=== PATIENT | female | born 1950 | race Caucasian/White ===

== ENCOUNTER 2016-08-08 08:34 | Emergency (ER) | payer MEDICARE ==
[2016-08-08 08:58] VITALS: BP 143/60
--- NOTE | 2016-08-08 09:28 | UC ---
FLU HPI - HPI Summary HPI Summary: cough, sore throat, muscle aches, dizzy, feverish x 4 days. Worried about bronchitis or pneumonia. Advised by nurse at work to seek med attention. - History of Current Complaint Chief Complaint: UCRespiratory Stated Complaint: COUGH,ACHY Time Seen by Provider: 08/08/16 09:26 Hx Obtained From: Patient Onset/Duration: Gradual Onset, Lasting Days, Still Present Severity Currently: Moderate Severity Initially: Moderate Pain Intensity: 4 Pain Scale Used: 0-10 Numeric Associated Signs & Symptoms: Positive: Fever, Cough, Sore Throat, Diarrhea - nausea. Negative: Vomiting - Risk Factors Influenza Risk Factors: Negative - Allergy/Home Medications Allergies/Adverse Reactions: Allergies Allergy/AdvReac Type Severity Reaction Status Date / Time No Known Allergies Allergy Verified 08/08/16 08:52 Home Medications: Home Medications Losartan TAB* [Cozaar TAB*] 12.5 mg PO DAILY 08/08/16 [History Confirmed ] Dcxpzafjrzcpk-Hghnnqgnuo-Ru-Gu [Mucinex Fast-Max /] 1 - 2 cap PO Q4H PRN 08/08/16 [History Confirmed 08/08/16] Simvastatin TAB(NF) [Zocor(NF)] 40 mg PO 1700 08/08/16 [History Confirmed ] amLODIPine TAB* [Norvasc TAB*] 10 mg PO DAILY 08/08/16 [History Confirmed ] PMH/Surg Hx/FS Hx/Imm Hx Previously Healthy: No - syringomyelia Endocrine History Of: Reports: Dyslipidemia Cardiovascular History Of: Reports: Hypertension - Surgical History Surgical History: Yes Surgery Procedure, Year, and Place: Tubal Ligation, ~1984, [place] - Family History Known Family History: Positive: Hypertension - Social History Occupation: Employed Full-time Alcohol Use: Occasionally Substance Use Type: None Smoking Status (MU): Former Smoker Type: Cigarettes Amount Used/How Often: <1 PPD Length of Time of Smoking/Using Tobacco: 19 Years Have You Smoked in the Last Year: No When Did the Patient Quit Smoking/Using Tobacco: 1991 - Immunization History Most Recent Influenza Vaccination: Not the 2015/2016 Season Review of Systems Constitutional: Fever ENT: Sore Throat Respiratory: Cough Musculoskeletal: Myalgia Neurological: Headache, Other - dizzy All Other Systems Reviewed And Are Negative: Yes Physical Exam Triage Information Reviewed: Yes Appearance: Well-Nourished, Ill-Appearing, Pain Distress Vital Signs: Initial Vital Signs Temp 98.7 F 08/08/16 08:49 Pulse 96 08/08/16 08:49 Resp 16 08/08/16 08:49 BP 143/60 08/08/16 08:49 Pulse Ox 96 08/08/16 08:49 Vital Signs Reviewed: Yes Eyes: Positive: Conjunctiva Clear ENT: Positive: Hearing grossly normal, Pharyngeal erythema, TMs normal Neck: Positive: Supple, Nontender, No Lymphadenopathy Respiratory: Positive: Lungs clear, Normal breath sounds, No respiratory distress Cardiovascular: Positive: RRR, No Murmur, Pulses Normal, Brisk Capillary Refill Abdomen Description: Positive: Nontender, Soft Musculoskeletal: Positive: Strength Intact, ROM Intact Neurological: Positive: Alert, Muscle Tone Normal Psychological Exam: Normal Skin Exam: Normal Flu Course/Dx - Course Course Of Treatment: pt is 65 yo, not high risk influenza group, is clinically well enough that will not treat with tamiflu at this time. But am clinically diagnosing pt with influenza. No evidence of bronchitis or pneumonia on exam. Pt understands symptomatic treatment. - Differential Dx/Diagnosis Differential Diagnosis/HQI/PQRI: Bronchitis, Influenza, Pneumonia, Upper Respiratory Infection Provider Diagnoses: influenza. acute cough Discharge - Discharge Plan Condition: Stable Disposition: HOME Prescriptions: Benzonatate CAP* [Tessalon CAP*] 100 mg PO TID PRN #20 cap PRN Reason: Cough Patient Education Materials: Influenza (ED) Forms: *Work Release Referrals: Talita Fragoso MD [Primary Care Provider] -
== END 2016-08-08 09:42 | disposition home or self-care (01) ==
LOC: UCCORT 08:34
DX: J11.1 Influenza due to unidentified influenza virus with other respiratory manifestations (principal); I10 Essential (primary) hypertension; E78.5 Hyperlipidemia, unspecified; Z87.891 Personal history of nicotine dependence
CPT/HCPCS: 99212; G0463

== ENCOUNTER 2018-03-20 10:19 | Emergency (ER) | payer MEDICARE ==
[2018-03-20 10:49] VITALS: BP 163/74
--- NOTE | 2018-03-20 12:24 | UC ---
Skin Complaint HPI - HPI Summary HPI Summary: Pt states friday woke and felt mouth was dry. pt states this continued for several days. Pt states was taking benadryl to help with sleep and thought this was the cause. pt states stopped taking. States feels like perioral area is tight and gums feel swollen in the front. no lesions, no bleeding. Pt with a bridge that was rubbing and thought twas the cause at first. no sob. No diffculty swallowing. no tongue swelling. no fever, chills no bleeding Pt's medications reviewed this visit - History of Current Complaint Chief Complaint: UCRespiratory Time Seen by Provider: 03/20/18 12:09 Stated Complaint: SWOLLEN,TIGHTNESS IN MOUTH (2DAYS) Hx Obtained From: Patient Onset/Duration: Gradual Onset Pain Intensity: 0 - Allergy/Home Medications Allergies/Adverse Reactions: Allergies Allergy/AdvReac Type Severity Reaction Status Date / Time No Known Allergies Allergy Verified 03/20/18 10:48 Home Medications: Home Medications Blood Pressure Med 0.5 tab DAILY 03/20/18 [History Confirmed 03/20/18] Review of Systems Constitutional: Negative Skin: Negative ENT: Other - mouth sore All Other Systems Reviewed And Are Negative: Yes PMH/Surg Hx/FS Hx/Imm Hx - Additional Past Medical History Additional PMH: Vital Signs Reviewed: Yes A+Ox3, no distress Eyes: Conjunctiva Clear, MIQUEL. EOM intact and full ENT: Hearing grossly normal TM x 2 clear,tturbinates wnl Pt with mild edema buccal gumline anterior aspect. no bleeding. no discomfort CN 2-12 intact and full, no intraoral edema, mmoist, uvula midline, no exudate, no erythema Neck: Positive: Supple Respiratory: Positive: No respiratory distress, No accessory muscle use + CTA throughout no w/r Cardiovascular: RRR nl s1, s2 no m/r CBT <2 sec abd soft + BS nt/nd no guarding, no distension Musculoskeletal Exam: BROWN x 4 without difficulty Strength Intact, ROM Intact Neurological: Positive: Alert, + sensation throughout Psychological: Positive: Normal Response To Family Skin: Positive: no rash, no ecchymosis Previously Healthy: Yes - Surgical History Surgical History: Yes Surgery Procedure, Year, and Place: Tubal Ligation, ~1984, [place] - Family History Known Family History: Positive: Hypertension - Social History Occupation: Retired Lives: With Family Alcohol Use: Occasionally Substance Use Type: None Smoking Status (MU): Former Smoker Type: Cigarettes Amount Used/How Often: <1 PPD Length of Time of Smoking/Using Tobacco: 19 Years Have You Smoked in the Last Year: No When Did the Patient Quit Smoking/Using Tobacco: 1991 - Immunization History Most Recent Influenza Vaccination: Not the 2016/2016 Season Most Recent Tetanus Shot: UTD Physical Exam - Summary Physical Exam Summary: Vital Signs Reviewed: Yes A+Ox3, no distress Eyes: Conjunctiva Clear, MIQUEL. EOM intact and full ENT: Hearing grossly normal TM x 2 clear, mmoist, uvula midline, no exudate, no erythema Neck: Positive: Supple Respiratory: Positive: No respiratory distress, No accessory muscle use + CTA throughout no w/r Cardiovascular: RRR nl s1, s2 no m/r CBT <2 sec abd soft + BS nt/nd no guarding, no distension Musculoskeletal Exam: BROWN x 4 without difficulty Strength Intact, ROM Intact Neurological: Positive: Alert, + sensation throughout Psychological: Positive: Normal Response To Family Skin: Positive: no rash, no ecchymosis Triage Information Reviewed: Yes Vital Signs: Initial Vital Signs Temp 98 F 03/20/18 10:40 Pulse 80 03/20/18 10:40 Resp 22 03/20/18 10:40 BP 163/74 03/20/18 10:40 Pulse Ox 100 03/20/18 10:40 Course/Dx - Course Course Of Treatment: Pt with perioral sensation skin is tight but normal sensation. mild edema anterior buccal gumline. no erythema, no fluctuance no edema to tongue or intraoral area. recommend pred, cholorexadine. avoid benadryl. strict return precautions. Pt's BP elevated - recommend pcp f/u - Diagnoses Provider Diagnoses: oral mucositis Discharge - Sign-Out/Discharge Documenting (check all that apply): Patient Departure All imaging exams completed and their final reports reviewed: No Studies - Discharge Plan Condition: Stable Disposition: HOME Prescriptions: Chlorhexidine MOUTHWASH 0.12%* [Peridex Mouth Wash 0.12%*] 15 ml .SEE ORDER TID #150 oral.soln predniSONE TAB* [Deltasone 20 MG TAB*] 40 mg PO DAILY #10 tab Patient Education Materials: Oral Mucositis (ED) Referrals: Talita Fragoso MD [Primary Care Provider] - Additional Instructions: - Stay well hydrated. Drink plenty of non-alcoholic, non-caffinated beverages - take prednisone as prescribed until gone - swish and spit with oral solution as prescribed - discontinue use of sleeping medication - contact your doctor or go to the emergency department for increased swelling, difficulty breathing, swallowing or any other concerns - Billing Disposition and Condition Condition: STABLE Disposition: Home
== END 2018-03-20 12:43 | disposition home or self-care (01) ==
LOC: UCCORT 10:19
DX: K12.30 Oral mucositis (ulcerative), unspecified (principal); Z87.891 Personal history of nicotine dependence
CPT/HCPCS: 99212; G0463